=== PATIENT | female | born 1970 | race Two or more races ===

== ENCOUNTER 2025-05-07 15:34 | Emergency (ER) | payer MEDICAID, OTHER ==
[~2025-05-07] VITALS: Ht 165.1 cm; Wt 75.0 kg
[2025-05-07 16:01] VITALS: PULSE 92
--- NOTE | 2025-05-07 16:14 | ED.PDOC ---
Psychiatric HPI Comments This is a 54 year-old female who presents to the ED via EMS with a chief complaint of anxiety with associated suicidal and homicidal ideation today. Per EMS, patient was at a mental health facility and requested further care for her ability. Per EMS, patient was screaming at the facility, and admitting to hurting herself and others. Patient additionally reports ongoing neck and back pain over the past x24 hours. Patient otherwise denies chest pain, N/V, auditory hallucinations, visual hallucinations, or fever. Chief Complaint: Suicidal Time Seen by MD: 16:17 Reviewed Notes: Nurses Notes, Labor Relations Or Personnel Negotiator Notes, Medications, Allergies Information Source: Patient, Emergency Med Personnel Mode of Arrival: EMS Severity: Unable to Care for Self Severity of Mental Status: Moderate Severity of Symptoms: Moderate Duration: Since onset Presents with: Anxiety, Suicidal Ideation, Homicidal Ideation Associated signs and symptoms: Anxiety Past Medical History PAST MEDICAL HISTORY: Depression Surgical History: Denies all surgeries WATER TAXI FERRY OPERATOR History: No Pertinent WATER TAXI FERRY OPERATOR History Family History Family History: Reviewed,noncontributory to illness, No family hx of Cancer, No family hx of DM, No family hx of Heart liz, No family hx of HTN, No family hx ofKidney liz, No family hx of Liver liz, No family hx of Lung liz, No family hx of Stroke Social History Smoker: Non-Smoker Alcohol: Denies ETOH Use Drugs: Denies Drug Use Lives In: Home Constitutional: denies: chills, diaphoresis, fatigue, fever, malaise, sweats, weakness, others EENTM: denies: blurred vision, double vision, ear bleeding, ear discharge, ear drainage, ear pain, ear ringing, eye pain, eye redness, hearing loss, mouth pain, mouth swelling, nasal discharge, nose bleeding, nose congestion, nose pain, photophobia, tearing, throat pain, throat swelling, voice changes, others Respiratory: denies: cough, hemoptysis, orthopnea, SOB at rest, shortness of breath, SOB with excertion, stridor, wheezing, others Cardiovascular: denies: chest pain, dizzy spells, diaphoresis, Dyspnea on exertion, edema, irregular heart beat, left arm pain, lightheadedness, palpitations, PND, syncope, others Gastrointestinal: denies: abdomen distended, abdominal pain, blood streaked bowels, constipated, diarrhea, dysphagia, difficulty swallowing, hematemesis, melena, nausea, poor appetite, poor fluid intake, rectal bleeding, rectal pain, vomiting, others Genitourinary: denies: abnormal vagina bleeding, burning, dyspareunia, dysuria, flank pain, frequency, hematuria, incontinence, pain, , vagina discharge, urgency, others Neurological: denies: dizziness, fainting, headache, left sided numbness, left sided weakness, numbness, paresthesia, pre-existing deficit, right sided numbness, right sided weakness, seizure, speech problems, tingling, tremors, weakness, others Musculoskeletal: denies: back pain, gout, joint pain, joint swelling, muscle pain, muscle stiffness, neck pain, others Integumetry: denies: bruises, change in color, change in hair/nails, dryness, laceration, lesions, lumps, rash, wounds, others Allergic/Immunocompromised: denies: Difficulty Healing, Frequent Infections, Hives, Itching, others Hematologic/Lymphatic: denies: anemia, blood clots, easy bleeding, easy bruising, swollen glands, others Endocrine: denies: excessive hunger, excessive sweating, excessive thirst, excessive urination, flushing, intolerance to cold, intolerance to heat, unexplained weight gain, unexplained weight loss, others Psychiatric: reports: anxiety, suicidal; denies: bipolar disorder, depression, hopeless, panic disorder, schizophrenia, sleepless, others All Other Systems: Reviewed and Negative Was a procedure done? Was a procedure done?: No Psych Differential Dx Psych. Differential Dx: Suicidal Suicidal Differential Dx: Anxiety, Depression, Homicidal, Schizoprenia X-Ray, Labs, Meds, VS Vital Signs Date Time Temp Pulse Resp B/P (MAP) Pulse Ox O2 Delivery O2 Flow Rate FiO2 05/07/25 16:01 92 05/07/25 15:51 98.4 98 18 151/88 (109) 100 98.4 05/07/25 15:43 93 05/07/25 15:42 98.4 98 18 151/88 100 98.4 Lab Test 05/07/25 16:05 Range/Units White Blood Count Pending Red Blood Count Pending Hemoglobin Pending Hematocrit Pending Mean Corpuscular Volume Pending Mean Corpuscular Hemoglobin Pending Mean Corpuscular Hemoglobin Concent Pending Red Cell Distribution Width Pending Platelet Count Pending Mean Platelet Volume Pending Neutrophils (%) (Auto) Pending Lymphocytes (%) (Auto) Pending Monocytes (%) (Auto) Pending Basophils (%) (Auto) Pending Neutrophils # (Auto) Pending Lymphocytes # (Auto) Pending Monocytes # (Auto) Pending Sodium Level Pending Potassium Level Pending Chloride Level Pending Carbon Dioxide Level Pending Anion Gap Pending Blood Urea Nitrogen Pending Creatinine Pending Glomerular Filtration Rate Calc Pending BUN/Creatinine Ratio Pending Serum Glucose Pending Calcium Level Pending Total Bilirubin Pending Aspartate Amino Transferase (AST) Pending Alanine Aminotransferase (ALT) Pending Alkaline Phosphatase Pending Total Protein Pending Albumin Pending Salicylates Level Pending Acetaminophen Level Pending Plasma/Serum Blood Alcohol Pending Time of 1ST Reevaluation: 16:49 Reevaluation 1ST: Unchanged Patient Education/Counseling: Diagnosis, Treatment, Need For Follow Up Family Education/Counseling: No Family Present Medical Screening: No EMC Exist At This Time Critical Care Note Critical Care Time?: No Stability Stability form required: No Heart Score Heart Score: Heart Score Response (Comments) Value History N/A 0 EKG N/A 0 Age N/A 0 Risk Factors N/A 0 Troponin N/A 0 Total 0 I personally scribed for BONITA DENNIS MD ([facility]) on 05/07/25 at 16:14. Electronically submitted by Verona Thomas ([employer]). I personally scribed for BONITA DENNIS MD ([facility]) on 05/07/25 at 16:24. Electronically submitted by Verona Thomas ([email or web address]). BONITA DENNIS MD May 07, 2025 16:14
[2025-05-07] MEDS: CYCLOBENZAPRINE HCL 10 MG TAB PO ONE (16:34)
[2025-05-07 16:41] LABS: Hematocrit 41.3 % (36.0-46.0); Hemoglobin 14.4 g/dL (12.2-16.2); Mean Corpuscular Hemoglobin 32.8 pg (28.0-32.0); Mean Corpuscular Volume 93.7 fL (80.0-100.0); Nucleated Red Blood Cells % 0.1 %
--- NOTE | 2025-05-07 16:43 | ED.PDOC ---
Psychiatric HPI Comments This is a 54 year-old female who presents to the ED via EMS with a chief complaint of anxiety with associated suicidal and homicidal ideation today. Per EMS, patient was at a mental health facility and requested further care for her refill on Abilify. Per EMS, patient was screaming at the facility, and admitting to hurting herself and others. Patient additionally reports ongoing neck and back pain over the past x24 hours. Patient otherwise denies chest pain, N/V, auditory hallucinations, visual hallucinations, or fever. Chief Complaint: Suicidal Time Seen by MD: 16:40 Reviewed Notes: Nurses Notes, Carpet Inspector Notes, Medications, Allergies Information Source: Patient Mode of Arrival: EMS Severity: Unable to Care for Self Severity of Pain: None Severity of Mental Status: Moderate Severity of Symptoms: Moderate Timing: Minutes Duration: Since onset Prehospital treatment: None Presents with: Suicidal Ideation Ingestion: None Circumstance: None Current substance abuse: Amphetamines Stressors: Homeless History of: Substance Abuse Quality: None Associated signs and symptoms: None Past Medical History PAST MEDICAL HISTORY: Depression, Thyroid Surgical History: Denies all surgeries MIDDLEWARE CONSULTANT History: No Pertinent MIDDLEWARE CONSULTANT History Family History Family History: Family hx of heart liz Social History Smoker: Cigarettes Alcohol: Occasionally Drugs: Methamphetamine Lives In: Homeless Constitutional: denies: chills, diaphoresis, fatigue, fever, malaise, sweats, weakness, others EENTM: denies: blurred vision, double vision, ear bleeding, ear discharge, ear drainage, ear pain, ear ringing, eye pain, eye redness, hearing loss, mouth pain, mouth swelling, nasal discharge, nose bleeding, nose congestion, nose pain, photophobia, tearing, throat pain, throat swelling, voice changes, others Respiratory: denies: cough, hemoptysis, orthopnea, SOB at rest, shortness of breath, SOB with excertion, stridor, wheezing, others Cardiovascular: denies: chest pain, dizzy spells, diaphoresis, Dyspnea on exertion, edema, irregular heart beat, left arm pain, lightheadedness, palpitations, PND, syncope, others Gastrointestinal: denies: abdomen distended, abdominal pain, blood streaked bowels, constipated, diarrhea, dysphagia, difficulty swallowing, hematemesis, melena, nausea, poor appetite, poor fluid intake, rectal bleeding, rectal pain, vomiting, others Genitourinary: denies: abnormal vagina bleeding, burning, dyspareunia, dysuria, flank pain, frequency, hematuria, incontinence, pain, , vagina discharge, urgency, others Neurological: denies: dizziness, fainting, headache, left sided numbness, left sided weakness, numbness, paresthesia, pre-existing deficit, right sided numbness, right sided weakness, seizure, speech problems, tingling, tremors, weakness, others Musculoskeletal: denies: back pain, gout, joint pain, joint swelling, muscle pain, muscle stiffness, neck pain, others Integumetry: denies: bruises, change in color, change in hair/nails, dryness, laceration, lesions, lumps, rash, wounds, others Allergic/Immunocompromised: denies: Difficulty Healing, Frequent Infections, Hives, Itching, others Hematologic/Lymphatic: denies: anemia, blood clots, easy bleeding, easy bruising, swollen glands, others Endocrine: denies: excessive hunger, excessive sweating, excessive thirst, excessive urination, flushing, intolerance to cold, intolerance to heat, unex plained weight gain, unexplained weight loss, others Psychiatric: reports: suicidal; denies: anxiety, bipolar disorder, depression, hopeless, panic disorder, schizophrenia, sleepless, others All Other Systems: Reviewed and Negative Physical Exam General Appearance: Mild Distress HEENT: Normal ENT Inspection, Pharynx Normal, TMs Normal Neck: Full Range of Motion, Non-Tender, Normal, Normal Inspection Respiratory: Chest Non-Tender, Lungs Clear, No Accessory Muscle Use, No Respiratory Distress, Normal Breath Sounds Cardiovascular: No Edema, No JVD, No Murmur, No Gallop, Normal Peripheral Pulses, Regular Rate/Rhythm Breast Exam: Deferred Gastrointestinal: No Organomegaly, Non Tender, No Pulsatile Mass, Normal Bowel Sounds, Soft Genitalia: Deferred Pelvic: Deferred Rectal: Deferred Extremities: No calf tenderness, Normal capillary refill, Normal inspection, Normal range of motion, Non-tender, No pedal edema Musculoskeletal : Apperance: Normal Neurologic: Alert, customer service driver II-XII nml as Tested, No Motor Deficits, No Sensory Deficits, Other (Suicidal ideation) Cerebellar Function: Normal Reflexes: Normal Skin: Dry, Normal Color, Warm Lymphatic: No Adenopathy Was a procedure done? Was a procedure done?: No Psych Differential Dx Psych. Differential Dx: Sleepless, Suicidal Suicidal Differential Dx: Depression, Substance Abuse X-Ray, Labs, Meds, VS Vital Signs Date Time Temp Pulse Resp B/P (MAP) Pulse Ox O2 Delivery O2 Flow Rate FiO2 05/07/25 16:01 92 05/07/25 15:51 98.4 98 18 151/88 (109) 100 98.4 05/07/25 15:43 93 05/07/25 15:42 98.4 98 18 151/88 100 98.4 Lab Test 05/07/25 16:05 Range/Units White Blood Count 6.7 4.4-10.8 10^3/uL Red Blood Count 4.40 4.0-5.20 10^6/uL Hemoglobin 14.4 12.2-16.2 g/dL Hematocrit 41.3 36.0-46.0 % Mean Corpuscular Volume 93.7 80.0-100.0 fL Mean Corpuscular Hemoglobin 32.8 H 28.0-32.0 pg Mean Corpuscular Hemoglobin Concent 35.0 32.0-36.0 g/dL Red Cell Distribution Width 13.5 11.8-14.3 % Platelet Count 189 140-450 10^3/uL Mean Platelet Volume 7.9 6.9-10.8 fL Neutrophils (%) (Auto) 48.9 37.0-80.0 % Lymphocytes (%) (Auto) 40.7 10.0-50.0 % Monocytes (%) (Auto) 7.8 0.0-12.0 % Eosinophils (%) (Auto) 1.7 0.0-7.0 % Basophils (%) (Auto) 0.9 0.0-2.0 % Neutrophils # (Auto) 3.3 1.6-8.6 10 ^3/uL Lymphocytes # (Auto) 2.7 0.4-5.4 10 ^3/uL Monocytes # (Auto) 0.5 0-1.3 10 ^3/uL Eosinophils # (Auto) 0.1 0-0.8 10 ^3/uL Basophils # (Auto) 0.1 0-0.2 10 ^3/uL Nucleated Red Blood Cells 0.1 % Sodium Level 145 136-145 mmol/L Potassium Level 3.6 3.5-5.1 mmol/L Chloride Level 109 H 98-107 mmol/L Carbon Dioxide Level 23 20-31 mmol/L Anion Gap 13 5-15 Blood Urea Nitrogen 8 L 9-23 mg/dL Creatinine 1.20 H 0.550-1.02 mg/dL Glomerular Filtration Rate Calc 53 >90 mL/min BUN/Creatinine Ratio 6.7 L 10.0-20.0 Serum Glucose 152 H 74-106 mg/dL Calcium Level 9.9 8.7-10.4 mg/dL Total Bilirubin 0.5 0.2-1.0 mg/dL Aspartate Amino Transferase (AST) 21 13-40 U/L Alanine Aminotransferase (ALT) 23 7-40 U/L Alkaline Phosphatase 47 46-116 U/L Total Protein 7.8 5.7-8.2 g/dL Albumin 4.7 3.2-4.8 g/dL Salicylates Level < 3.0 -30 mg/dL Acetaminophen Level < 2.0 L 10.0-20.0 UG/ML Plasma/Serum Blood Alcohol 10.5 H <10 mg/dL Current Medications Medications (Trade) Dose Ordered Sig/Nereyda Route Start Time Stop Time Status Last Admin Cyclobenzaprine HCl (Flexeril Tablet) 10 mg ONCE ONCE PO 05/07/25 16:30 05/07/25 16:31 DC 05/07/25 16:34 The patient was given Flexeril 10 mg p.o. The patient's salicylate level and acetaminophen level are negative The patient's alcohol level is 10.5 The CBC and chemistry panel are within normal limits At this time, the patient is being signed out to Dr. Omer Time of 1ST Reevaluation: 17:10 Reevaluation 1ST: Unchanged Patient Education/Counseling: Diagnosis, Treatment, Prognosis Family Education/Counseling: No Family Present Departure 1 Departure Time of Disposition: 16:49 Impression: Primary Impression: Suicidal ideation Disposition: 30 STILL A PATIENT Condition: Fair Critical Care Note Critical Care Time?: No Stability Stability form required: No Heart Score Heart Score: Heart Score Response (Comments) Value History N/A 0 EKG N/A 0 Age N/A 0 Risk Factors N/A 0 Troponin N/A 0 Total 0 I personally scribed for SAMANTA GARCIA MD ([email or web address]) on 05/07/25 at 16:43. Electronically submitted by Kiesha Salinas ([email or web address]). I personally scribed for SAMANTA GARCIA MD ([email or web address]) on 05/07/25 at 16:45. Electronically submitted by Kiesha Salinas ([email or web address]). SAMANTA GARCIA MD May 07, 2025 16:43
[2025-05-07 16:50] LABS: Alanine Aminotransferase 23 U/L (7-40); Albumin 4.7 g/dL (3.2-4.8); Alkaline Phosphatase 47 U/L (46-116); Anion Gap 13 (5-15); BUN/Creatinine Ratio 6.7 (10.0-20.0); Bilirubin, Total 0.5 mg/dL (0.2-1.0); Calcium 9.9 mg/dL (8.7-10.4); Carbon Dioxide 23 mmol/L (20-31); Potassium 3.6 mmol/L (3.5-5.1); Total Protein 7.8 g/dL (5.7-8.2)
[2025-05-07 16:52] LABS: Acetaminophen < 2.0 UG/ML (10.0-20.0); Salicylate < 3.0 mg/dL (-30)
[2025-05-07 16:54] LABS: Blood Urea Nitrogen 8 mg/dL (9-23); Chloride 109 mmol/L (98-107); Glucose 152 mg/dL (74-106); Sodium 145 mmol/L (136-145)
[2025-05-07 17:14] LABS: Amphetamine Screen, Urine Neg (NEGATIVE); Phencyclidine Screen, Urine Neg (NEGATIVE)
[2025-05-07 17:17] LABS: Urine Protein, UAD Negative (Negative)
[2025-05-07 17:21] LABS: Barbiturate Scree,Urine Neg (NEGATIVE); Benzodiazephine Screen, Urine Neg (NEGATIVE); Cannabinoid Screen, Urine Neg (NEGATIVE); Cocaine Screen, Urine Neg (NEGATIVE); Opiate Scree,Urine Neg (NEGATIVE)
[2025-05-07] MEDS: NICOTINE 14 MG/24HR TOPICAL PATCH TD ONE (17:22)
--- NOTE | 2025-05-07 21:26 | DVHINCON2 ---
Date of Service if different f: May 07, 2025 Time of Service: 21:02 Consultation (LONEDELL) Labs Laboratory Tests Test 05/07/25 16:05 05/07/25 16:30 05/07/25 17:20 White Blood Count 6.7 10^3/uL (4.4-10.8) Red Blood Count 4.40 10^6/uL (4.0-5.20) Hemoglobin 14.4 g/dL (12.2-16.2) Hematocrit 41.3 % (36.0-46.0) Mean Corpuscular Volume 93.7 fL (80.0-100.0) Mean Corpuscular Hemoglobin 32.8 pg (28.0-32.0) Mean Corpuscular Hemoglobin Concent 35.0 g/dL (32.0-36.0) Red Cell Distribution Width 13.5 % (11.8-14.3) Platelet Count 189 10^3/uL (140-450) Mean Platelet Volume 7.9 fL (6.9-10.8) Neutrophils (%) (Auto) 48.9 % (37.0-80.0) Lymphocytes (%) (Auto) 40.7 % (10.0-50.0) Monocytes (%) (Auto) 7.8 % (0.0-12.0) Eosinophils (%) (Auto) 1.7 % (0.0-7.0) Basophils (%) (Auto) 0.9 % (0.0-2.0) Neutrophils # (Auto) 3.3 10 ^3/uL (1.6-8.6) Lymphocytes # (Auto) 2.7 10 ^3/uL (0.4-5.4) Monocytes # (Auto) 0.5 10 ^3/uL (0-1.3) Eosinophils # (Auto) 0.1 10 ^3/uL (0-0.8) Basophils # (Auto) 0.1 10 ^3/uL (0-0.2) Nucleated Red Blood Cells 0.1 % Sodium Level 145 mmol/L (136-145) Potassium Level 3.6 mmol/L (3.5-5.1) Chloride Level 109 mmol/L (98-107) Carbon Dioxide Level 23 mmol/L (20-31) Anion Gap 13 (5-15) Blood Urea Nitrogen 8 mg/dL (9-23) Creatinine 1.20 mg/dL (0.550-1.02) Glomerular Filtration Rate Calc 53 mL/min (>90) BUN/Creatinine Ratio 6.7 (10.0-20.0) Serum Glucose 152 mg/dL (74-106) Calcium Level 9.9 mg/dL (8.7-10.4) Total Bilirubin 0.5 mg/dL (0.2-1.0) Aspartate Amino Transf (AST/SGOT) 21 U/L (13-40) Alanine Aminotransferase (ALT/SGPT) 23 U/L (7-40) Alkaline Phosphatase 47 U/L (46-116) Total Protein 7.8 g/dL (5.7-8.2) Albumin 4.7 g/dL (3.2-4.8) Salicylates Level < 3.0 mg/dL (-30) Acetaminophen Level < 2.0 UG/ML (10.0-20.0) Plasma/Serum Blood Alcohol 10.5 mg/dL (<10) Urine Color Yellow (Yellow) Urine Clarity Clear (Clear) Urine pH 5.0 (5.0-9.0) Urine Specific [place] 1.027 (1.001-1.035) Urine Protein Negative (Negative) Urine Ketones Negative (Negative) Urine Blood Negative /uL (Negative) Urine Nitrite Negative (Negative) Urine Bilirubin Negative (Negative) Urine Urobilinogen 2 mg/dL (Negative) Urine Leukocyte Esterase Negative /uL (Negative) Urine RBC 3 /hpf (0 - 4) Urine Microscopic WBC < 1 /HPF (0-5) Urine Squamous Epithelial Cells Mod /hpf (<5) Urine Bacteria None seen /hpf (None Seen) Urine Hyaline Casts Few /lpf (0 - 2) Urine Mucus Few (None Seen) Urine Glucose Normal mg/dL (Normal) Urine Opiates Screen Neg (NEGATIVE) Urine Fentanyl Screen Neg (NEGATIVE) Urine Barbiturates Screen Neg (NEGATIVE) Urine Phencyclidine Screen Neg (NEGATIVE) Urine Amphetamines Screen Neg (NEGATIVE) Urine Benzodiazepines Screen Neg (NEGATIVE) Urine Cocaine Screen Neg (NEGATIVE) Urine Cannabinoids Screen Neg (NEGATIVE) Appearance: Stated age Psychomotor activity: WNL Behavioral: Cooperative Eye contact: Appropriate Speech: WNL Affect: Appropriate Mood: Depressed Thought processes: Linear/Goal-directed Thought content: WNL Suicidal ideations: Absent Homicidal ideations: Absent Orientation: Person, Place, Time, Situation Memory intact: Recent Intellect: Average Abstractability: WNL Concentration: Adequate Attention: Adequate Judgement: WNL Insight: Fair Vitals Vital Signs Date Time Temp Pulse Resp B/P (MAP) Pulse Ox O2 Delivery O2 Flow Rate FiO2 05/07/25 16:01 92 05/07/25 15:51 98.4 18 151/88 (109) 100 98.4 Treatment plan discussed: With staff Medication adjusted: No Labs ordered: No Psychotherapy provided: No Type: Voluntary History of Present Illness Reason for Consult : psychiatric evaluation PER ED PHYSICIAN NOTE:This is a 54 year-old female who presents to the ED via EMS with a chief complaint of anxiety with associated suicidal and homicidal ideation today. Per EMS, patient was at a mental health facility and requested further care for her refill on Abilify. Per EMS, patient was screaming at the facility, and admitting to hurting herself and others. Patient additionally reports ongoing neck and back pain over the past x24 hours. Patient otherwise denies chest pain, N/V, auditory hallucinations, visual hallucinations, or fever. PSYCHIATRIST HPI: The patient was seen and evaluated at [facility] ED via telepsychiatry platform. 54 yr old female reported feeling very anxiou and having panic attacks. She stated she relapsed on meth and PCP a week ago and th en she had entered [facility] and was there for a week. She said her medication were stopped when she entered. She told them that she was having panic attacks and couldn't sleep. 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 She noted she had been sober for 35 days prior to relapsing and would like to get into a rehab program. She reported she was on the waitlist for [facility] and is [facility] to [facility] to await a bed in the program. She denied having suicidal or homicidal ideation, plan or intent. Past Psychiatric History : Diagnosed with bipolar I disorder with anxiety in 2008. Hospitalized multiple times since 2008. No past suicide attempts. Past Medical History:hematuria (for six years) Current Medications: Abilify 15mg BID Trazodone 100mg QHS vistaril 50 mg q8hr prn anxiety NKDA Substance use: Extensive use of meth and alcohol in the past. Multiple rehabs. Denied other substance use. Social History : Homeless. of CHF in 2018 and she lost everything due to using drugs. No children. Has [facility] from [facility]. 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 Diagnosis: BIPOLAR I DISORDER; METH USE DISORDER Formulation: This 54 yr old female appears to suffer from bipolar disorder and meth use disorder. She does not warrant psychiatric hospitalization. She would benefit from starting her medications and getting help with housing. Plan: 1. Transfer to behavioral health unit when medically cleared and bed available. 2. Legal-voluntary. 3. Medication: recommend prescribing thirty day prescription with two refills: Abilify 15mg BID Trazodone 100mg qhs PRN insonmia hydroxyzine 50mg q8hr prn anxiety 4. Contact psychiatry if further evaluation or follow up is desired. 5. case discussed with ED physician, Dr. Omer. Assessment/Diagnosis/Plan Reviewed: Labs, Medications, Previous Orders BELEN MACHADO MD May 07, 2025 21:03
[2025-05-07] MEDS ORDERED: HYDR50TA32 PO (21:32)
[2025-05-07] MEDS ORDERED: ARIP15TA6 PO (21:32)
[2025-05-07] MEDS ORDERED: TRAZ-184 PO (21:32)
--- NOTE | 2025-05-07 21:33 | ED.PDOC ---
Departure 1 Departure Time of Disposition: 21:30 (Patient was cleared for discharge by Dr. Jha. We will discharge patient home with outpatient follow up.) Impression: Primary Impression: Suicidal ideation Disposition: HOME / SELF CARE / HOMELESS Condition: Stable Additional Instructions: It is important that you follow up with a psychiatrist. You were prescribed medications today. Please take as directed. If your symptoms worsen or you have any other concerns then please return to the ER. e-Prescriptions Hydroxyzine HCl (Hydroxyzine Hydrochloride) 50 Mg Tab 50 MG PO Q8HP PRN for 30 Days, #90 TAB Prov: GIULIANA BELL MD 05/07/25 Trazodone HCl (Trazodone Hydrocloride) 100 Mg Tab 100 MG PO QHSP PRN for 30 Days, #30 TAB Prov: GIULIANA BELL MD 05/07/25 Aripiprazole (Abilify) 15 Mg Tab 15 MG PO BID for 30 Days, #60 TAB Prov: GIULIANA BELL MD 05/07/25 Discharged With: Self GIULIANA BELL MD May 07, 2025 21:33
[2025-05-07 22:27] VITALS: BP 140/64; PULSE 62; RESP 16; TEMP 98.2; O2SAT 95
--- NOTE | 2025-05-08 06:28 | ECG ---
[facility] Test Date: 2025-05-07 Test Time: 15:43:25 Pat Name: SYLVIE REYES Department: Room: Gender: F Doctor'S Assistant: CHET : 1970 Requested By: BONITA LOPEZ Order Number: [id number] Reading MD: Eric Serrano Measurements Intervals [place] Rate: 93 P: 52 CA: 136 QRS: 19 QRSD: 81 T: 72 QT: 354 QTc: 441 Interpretive Statements Sinus tachycardia Multiple ventricular premature complexes Left atrial enlargement Baseline wander in lead(s) III,aVF,V3,V4 Electronically Signed On 05-10-2025 15:04:06 PDT by Eric Serrano Please click the below link to view image of tracing.
== END 2025-05-07 22:35 | disposition home or self-care (01) ==
LOC: EDBD 15:34 → ER 15:34
DX: R45.851 Suicidal ideations (principal); R45.850 Homicidal ideations; F41.9 Anxiety disorder, unspecified; F32.A Depression, unspecified; E03.9 Hypothyroidism, unspecified; F17.210 Nicotine dependence, cigarettes, uncomplicated; Z79.899 Other long term (current) drug therapy
CPT/HCPCS: 36415; 80053; 80307; 80320; 80329; 81001; 85025; 93005

== ENCOUNTER 2025-05-11 10:17 | Emergency (ER) | payer MEDICAID ==
[~2025-05-11] VITALS: Ht 162.6 cm; Wt 77.3 kg
[~2025-05-11 10:17] MED LIST: ARIP15TA6 PO; HYDR50TA32 PO; TRAZ-184 PO
--- NOTE | 2025-05-11 10:41 | ED.PDOC ---
History of Present Illness HPI Comments 54-year-old female BIBA with prior medical history of depression, thyroid and a chief complaint of ALOC. Patient is currently screaming in the ER and in is responding to internal stimuli. Denies chills, fever, N/V/D, SOB, CP. No other associated symptoms, modifiers, recent injuries or sick contacts present at this time. Chief Complaint: Mental Health Time Seen by MD: 10:35 Reviewed Notes: Nurses Notes, Medications, Allergies Allergies: Coded Allergies: Haloperidol (Verified Allergy, Severe, 05/07/25) Home Meds Active Scripts Hydroxyzine HCl (Hydroxyzine Hydrochloride) 50 Mg Tab, 50 MG PO Q8HP PRN for 30 Days, #90 TAB Prov:GIULIANA BELL MD 05/07/25 Trazodone HCl (Trazodone Hydrocloride) 100 Mg Tab, 100 MG PO QHSP PRN for 30 Days, #30 TAB Prov:GIULIANA BELL MD 05/07/25 Aripiprazole (Abilify) 15 Mg Tab, 15 MG PO BID for 30 Days, #60 TAB Prov:GIULIANA BELL MD 05/07/25 Information Source: Emergency Med Personnel Mode of Arrival: Ambulatory Severity: Moderate Timing: Came on: Suddenly Duration: Since onset Prehospital treatment: None Past Medical History PAST MEDICAL HISTORY: Depression, Thyroid Surgical History: Unobtainable, Pt Confused FIRE SYSTEMS INSPECTOR History: No Pertinent FIRE SYSTEMS INSPECTOR History Family History Family History: Unobtainable, Pt Confused Social History Smoker: Unknown, Unobtainable, Pt Confused Alcohol: Unknown, Unobtainable, Pt Confused Drugs: Unknown, Unobtainable, Pt Confused Lives In: Homeless Unable to Obtain due to: Altered Mental Status All Other Systems: Reviewed and Negative Physical Exam General Appearance: Moderate Distress HEENT: Pharynx Normal Neck: Normal Inspection Respiratory: No Respiratory Distress Cardiovascular: No Edema Breast Exam: Deferred Gastrointestinal: No Organomegaly Genitalia: Deferred Pelvic: Deferred Rectal: Deferred Extremities: Normal range of motion Neurologic: Disoriented, No Motor Deficits Cerebellar Function: NOT DONE Reflexes: NOT DONE Skin: Normal Color Lymphatic: NOT DONE Was a procedure done? Was a procedure done?: No Differential Dx Considerations may include: Psychiatric problems, psychosis, polysubstance abuse X-Ray, Labs, Meds, VS Vital Signs Date Time Temp Pulse Resp B/P (MAP) Pulse Ox O2 Delivery O2 Flow Rate FiO2 05/14/25 11:58 97.9 59 16 156/78 (104) 98 97.9 05/14/25 07:49 66 17 99 Room Air* 0 21 05/14/25 07:48 98.3 66 17 129/69 (89) 99 98.3 05/13/25 09:30 97.9 75 18 96 97.9 05/13/25 09:30 75 18 96 Room Air* 0 21 05/13/25 07:52 97.4 65 16 98/64 (75) 94 97.4 05/13/25 07:30 19 98 Room Air* 0 21 05/12/25 22:51 97.8 76 17 124/63 (83) 97 97.8 05/12/25 17:21 73 16 98 Room Air 05/12/25 17:21 97.8 73 16 127/67 (87) 98 97.8 05/12/25 14:55 98.2 74 16 119/69 (86) 97 98.2 05/11/25 21:00 74 19 113/66 (82) 94 05/11/25 20:00 73 19 129/81 (97) 98 05/11/25 19:30 73 19 98 Room Air* 0 05/11/25 19:30 73 19 129/81 (97) 98 05/11/25 19:00 74 13 146/47 (80) 96 05/11/25 18:00 67 16 133/83 (100) 97 05/11/25 17:00 70 15 123/61 (81) 95 05/11/25 16:00 73 18 115/61 (79) 96 05/11/25 15:00 74 13 108/87 (94) 98 05/11/25 14:00 80 18 97/41 (59) 96 05/11/25 13:00 84 28 122/58 (79) 98 05/11/25 12:00 89 18 115/49 (71) 96 05/11/25 11:30 105 15 98 Nasal Cannula* 2 28 05/11/25 11:00 98.9 105 15 149/51 (83) 98 98.9 05/11/25 10:25 69 18 118/62 100 Lab Test 05/11/25 16:06 05/11/25 11:14 Range/Units Urine Color Yellow Yellow Urine Clarity Ex.turbid Clear Urine pH 5.0 5.0-9.0 Urine Specific [place] 1.033 1.001-1.035 Urine Protein Trace H Negative Urine Ketones Negative Negative Urine Blood Negative Negative /uL Urine Nitrite Negative Negative Urine Bilirubin Negative Negative Urine Urobilinogen Normal Negative mg/dL Urine Leukocyte Esterase Negative Negative /uL Urine RBC None seen 0 - 4 /hpf Urine Microscopic WBC 3 0-5 /HPF Urine Squamous Epithelial Cells None seen <5 /hpf Urine Bacteria None seen None Seen /hpf Urine Mucus Few None Seen Urine Glucose Normal Normal mg/dL Urine Opiates Screen Neg NEGATIVE Urine Fentanyl Screen Neg NEGATIVE Urine Barbiturates Screen Neg NEGATIVE Urine Phencyclidine Screen Neg NEGATIVE Urine Amphetamines Screen Pos NEGATIVE Urine Benzodiazepines Screen Pos NEGATIVE Urine Cocaine Screen Neg NEGATIVE Urine Cannabinoids Screen Pos NEGATIVE White Blood Count 7.3 4.4-10.8 10^3/uL Red Blood Count 4.14 4.0-5.20 10^6/uL Hemoglobin 13.5 12.2-16.2 g/dL Hematocrit 38.9 36.0-46.0 % Mean Corpuscular Volume 94.0 80.0-100.0 fL Mean Corpuscular Hemoglobin 32.6 H 28.0-32.0 pg Mean Corpuscular Hemoglobin Concent 34.6 32.0-36.0 g/dL Red Cell Distribution Width 13.7 11.8-14.3 % Platelet Count 156 140-450 10^3/uL Mean Platelet Volume 7.8 6.9-10.8 fL Neutrophils (%) (Auto) 72.3 37.0-80.0 % Lymphocytes (%) (Auto) 21.1 10.0-50.0 % Monocytes (%) (Auto) 5.6 0.0-12.0 % Eosinophils (%) (Auto) 0.4 0.0-7.0 % Basophils (%) (Auto) 0.6 0.0-2.0 % Neutrophils # (Auto) 5.3 1.6-8.6 10 ^3/uL Lymphocytes # (Auto) 1.5 0.4-5.4 10 ^3/uL Monocytes # (Auto) 0.4 0-1.3 10 ^3/uL Eosinophils # (Auto) 0 0-0.8 10 ^3/uL Basophils # (Auto) 0 0-0.2 10 ^3/uL Nucleated Red Blood Cells 0.0 % Sodium Level 143 136-145 mmol/L Potassium Level 3.0 L 3.5-5.1 mmol/L Chloride Level 111 H 98-107 mmol/L Carbon Dioxide Level 23 20-31 mmol/L Anion Gap 9 5-15 Blood Urea Nitrogen 16 9-23 mg/dL Creatinine 1.08 H 0.550-1.02 mg/dL Glomerular Filtration Rate Calc 60 >90 mL/min BUN/Creatinine Ratio 14.8 10.0-20.0 Serum Glucose 146 H 74-106 mg/dL Calcium Level 9.4 8.7-10.4 mg/dL Salicylates Level < 3.0 -30 mg/dL Acetaminophen Level < 2.0 L 10.0-20.0 UG/ML Plasma/Serum Blood Alcohol < 3.0 <10 mg/dL Time of 1ST Reevaluation: 11:05 Reevaluation 1ST: Unchanged Patient Education/Counseling: Other (Patient is altered), Pt Unresponsive Family Education/Counseling: No Family Present SEPSIS Sepsis Screen Physician Orders Soc Telemed Psych Consult (05/11/25 10:29) * Personal Injury Litigation Paralegal Consult (05/13/25 ) Vital Signs Date Time Temp Pulse Resp B/P (MAP) Pulse Ox O2 Delivery O2 Flow Rate FiO2 05/14/25 11:58 97.9 59 16 156/78 (104) 98 97.9 05/14/25 07:49 66 17 99 Room Air* 0 05/14/25 07:48 98.3 66 17 129/69 (89) 99 98.3 05/13/25 09:30 97.9 75 18 96 97.9 05/13/25 09:30 75 18 96 Room Air* 0 05/13/25 07:52 97.4 65 16 98/64 (75) 94 97.4 05/13/25 07:30 19 98 Room Air* 0 05/12/25 22:51 97.8 76 17 124/63 (83) 97 97.8 05/12/25 17:21 73 16 98 Room Air 05/12/25 17:21 97.8 73 16 127/67 (87) 98 97.8 05/12/25 14:55 98.2 74 16 119/69 (86) 97 98.2 05/11/25 21:00 74 19 113/66 (82) 94 05/11/25 20:00 73 19 129/81 (97) 98 05/11/25 19:30 73 19 98 Room Air* 0 21 05/11/25 19:30 73 19 129/81 (97) 98 05/11/25 19:00 74 13 146/47 (80) 96 05/11/25 18:00 67 16 133/83 (100) 97 05/11/25 17:00 70 15 123/61 (81) 95 05/11/25 16:00 73 18 115/61 (79) 96 05/11/25 15:00 74 13 108/87 (94) 98 05/11/25 14:00 80 18 97/41 (59) 96 05/11/25 13:00 84 28 122/58 (79) 98 05/11/25 12:00 89 18 115/49 (71) 96 05/11/25 11:30 105 15 98 Nasal Cannula* 2 28 05/11/25 11:00 98.9 105 15 149/51 (83) 98 98.9 05/11/25 10:25 69 18 118/62 100 Laboratory Tests Test 05/11/25 11:14 White Blood Count 7.3 10^3/uL (4.4-10.8) Departure 1 Departure Time of Disposition: 01:04 (Patient is medically cleared. Patient likely with polysubstance abuse) Impression: Primary Impression: Polysubstance abuse Additional Impression: Suicide ideation Dis[facility]: [facility] Condition: Guarded Critical Care Note Critical Care Time?: Yes Critical care comment: Suicide ideation Authorized and Performed by: Giuliana Bell MD Total critical care time: Approximately 38 minutes Due to a high probability of clinically significant, life threatening deterioration, the patient required my highest level of preparedness to intervene emergently and I personally spent this critical care time directly and personally managing the patient. This critical care time included obtaining a history; examining the patient; pulse oximetry; ordering and review of studies; arranging urgent treatment with development of a management plan; evaluation of patient's response to treatment; frequent reassessment; and, discussions with other providers. This critical care time was performed to assess and manage the high probability of imminent, life-threatening deterioration that could result in multi-organ failure. It was exclusive of separately billable procedures and treating other patients and teaching time. Please see my other sections and the rest of the note for further information on patient assessment and treatment. Stability Stability form required: No I personally scribed for GIULIANA BELL MD ([email or web address]) on 05/11/25 at 10:41. Electronically submitted by Sundar Martini ([email or web address]). I personally scribed for GIULIANA BELL MD ([email or web address]) on 05/12/25 at 09:26. Electronically submitted by Sundar Martini ([email or web address]). GIULIANA BELL MD May 11, 2025 10:41
[2025-05-11] MEDS: MIDAZOLAM HCL 5 MG/ML-1ML VIAL IM ONE (10:57)
[2025-05-11 11:30] VITALS: PULSE 105; RESP 15; O2SAT 98
[2025-05-11 11:35] LABS: Hematocrit 38.9 % (36.0-46.0); Hemoglobin 13.5 g/dL (12.2-16.2); Mean Corpuscular Hemoglobin 32.6 pg (28.0-32.0); Mean Corpuscular Volume 94.0 fL (80.0-100.0); Nucleated Red Blood Cells % 0.0 %
[2025-05-11 11:46] LABS: Sodium 143 mmol/L (136-145)
[2025-05-11 11:47] LABS: Anion Gap 9 (5-15); Calcium 9.4 mg/dL (8.7-10.4); Carbon Dioxide 23 mmol/L (20-31); Chloride 111 mmol/L (98-107); Potassium 3.0 mmol/L (3.5-5.1)
[2025-05-11 11:52] LABS: BUN/Creatinine Ratio 14.8 (10.0-20.0); Blood Urea Nitrogen 16 mg/dL (9-23)
[2025-05-11 11:55] LABS: Glucose 146 mg/dL (74-106)
[2025-05-11 11:59] LABS: Acetaminophen < 2.0 UG/ML (10.0-20.0); Salicylate < 3.0 mg/dL (-30)
[2025-05-11 16:16] LABS: Urine Protein, UAD TRACE (Negative)
[2025-05-11 16:23] LABS: Cannabinoid Screen, Urine Pos (NEGATIVE); Phencyclidine Screen, Urine Neg (NEGATIVE)
[2025-05-11 16:31] LABS: Amphetamine Screen, Urine Pos (NEGATIVE); Barbiturate Scree,Urine Neg (NEGATIVE); Benzodiazephine Screen, Urine Pos (NEGATIVE); Cocaine Screen, Urine Neg (NEGATIVE); Opiate Scree,Urine Neg (NEGATIVE)
[2025-05-11 19:30] VITALS: PULSE 73; RESP 19; O2SAT 98
--- NOTE | 2025-05-11 20:49 | DVHINCON2 ---
Date of Service if different f: May 11, 2025 Time of Service: 20:47 Consult Consult Note PSYCH ED INITIAL EVAL HPI: 54 yr old female with PPH of bipolar disorder and anxiety and meth use disorder presents to ED biba for acute agitation in context of meth noncompliance and ongoing meth use Pt reports feeling very anxious and having panic attacks. She stated she relapsed on meth and PCP a week ago and used meth earlier today. She said her medication were stopped when she entered. pt requests to restart all outpt meds at this gudelia e She denied having suicidal or homicidal ideation, plan or intent. Denies AVH currently. NO longer agitated. Initially presented with agitation, RTIS, and manic like presentation claiming she is "pugh of bridger" and needed freq re- direction and de-escalation. Past Psychiatric History : Diagnosed with bipolar I disorder with anxiety in 2008. Hospitalized multiple times since 2008. No past suicide attempts. Past Medical History:hematuria (for six years) Current Medications: Abilify 15mg BID Trazodone 100mg QHS vistaril 50 mg q8hr prn anxiety NKDA Substance use: Extensive use of meth and alcohol in the past. Multiple rehabs. Denied other substance use. Social History : Homeless. of CHF in 2018 and she lost everything due to using drugs. No children. Has [facility] from [facility]. 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 MSE: General Appearance/Behavior: Alert/awake; appears stated age, slightly overweight, fair grooming/hygiene; calm/polite and cooperative, fair eye contact, no PMA/PMR Speech: coherent, rrr Thought Process: L/L/limited, bit loose and impoverished Thought Content: Abnormal Thoughts/Perceptions: denies dissociative symptoms Homicidality / Violent Thoughts: adamantly denies HI Suicidality: adamantly denies SI Hallucinations: denies AVTH Delusions: denies paranoia, persecutory, or grandiose delusions Obsessions /compulsions: None Judgment/Insight: marginal to limited Mood & Affect: "tired" with mood-congruent, appropriate Orientation: oriented x 3 Attention/Concentration: appears intact Cognition: grossly intact Diagnosis: BIPOLAR I DISORDER; METH USE DISORDER Formulation: This 54 yr old female appears to suffer from bipolar disorder and meth use disorder. She would benefit from starting her medications and vol inpt psych admission. Does not meet 5150 criteria at this time Plan: 1. Transfer to behavioral health unit when medically cleared and bed available. 2. Legal-voluntary. 3. Medication: recommend restarting Abilify 15mg BID Trazodone 100mg qhs PRN insonmia hydroxyzine 50mg q8hr prn anxiety 4. Contact psychiatry if further evaluation or follow up is desired. Denny Mckenna MD Plan discussed with: Patient DENNY MCKENNA MD May 11, 2025 20:49
[2025-05-11] MEDS: NICOTINE 21MG/24 HR TOPICAL PATCH TD ONE (21:13)
[2025-05-12] MEDS: OLANZapine 5 MG TAB PO ONE (07:51)
[2025-05-13 07:30] VITALS: RESP 19; O2SAT 98
[2025-05-13 09:30] VITALS: PULSE 75; RESP 18; O2SAT 96
[2025-05-13] MEDS: NICOTINE 7MG/24HR TOPICAL PATCH TD ONE (15:53)
[2025-05-13] MEDS: IBUPROFEN 400 MG TAB PO ONE (20:35)
[2025-05-14 07:49] VITALS: PULSE 66; RESP 17; O2SAT 99
[2025-05-14 11:58] VITALS: BP 156/78; PULSE 59; RESP 16; TEMP 97.9; O2SAT 98
== END 2025-05-14 12:15 ==
LOC: EDBD 10:17 → ER 10:17
DX: R45.851 Suicidal ideations (principal); F10.10 Alcohol abuse, uncomplicated; F15.10 Other stimulant abuse, uncomplicated; E03.9 Hypothyroidism, unspecified; F32.A Depression, unspecified; F17.200 Nicotine dependence, unspecified, uncomplicated; Z79.899 Other long term (current) drug therapy; Z88.8 Allergy status to other drugs, medicaments and biological substances; Z91.199 Patient's noncompliance with other medical treatment and regimen due to unspecified reason; Y90.9 Presence of alcohol in blood, level not specified
CPT/HCPCS: 36415; 80048; 80307; 80320; 80329; 81001; 85025; 96372; 99285; J2250